=== PATIENT | male | born 1995 | race African-American/Black ===

== ENCOUNTER 2025-03-07 10:09 | Emergency (ER) | payer OTHER ==
[~2025-03-07] VITALS: Ht 170.2 cm; Wt 107.4 kg
[2025-03-07 12:42] VITALS: BP 121/73; TEMP 97.8; O2SAT 97
[2025-03-07] MEDS: KETOROLAC 60 MG/2 ML VIAL IM ONE (12:47)
== END 2025-03-07 12:52 | disposition home or self-care (01) ==
LOC: M ED 10:09
DX: S83.281A Other tear of lateral meniscus, current injury, right knee, initial encounter (principal); Y92.9 Unspecified place or not applicable; Y93.9 Activity, unspecified; Y99.9 Unspecified external cause status; F17.210 Nicotine dependence, cigarettes, uncomplicated; F10.10 Alcohol abuse, uncomplicated
CPT/HCPCS: 96372; 99283; J1885